=== PATIENT | male | born 1990 | race Caucasian/White ===

== ENCOUNTER 2020-03-24 07:31 | Outpatient (CLI) | payer OTHER ==
[2020-03-24 14:18] LABS: Hemoglobin 16.2 g/dL (14.0-18.0); Mean Corpuscular Volume 91.2 fL (78.0-98.0); Mean Platelet Volume 8.9 fL (7.4-10.4); Platelet Count 179 thou/uL (130-400); RBC Distribution Width 12.3 % (11.5-14.5); Red Blood Cell (RBC) Count 5.23 mill/uL (4.70-6.10); White Blood Cell (WBC) Count 4.3 thou/uL (4.8-10.8)
[2020-03-24 14:38] LABS: Bacteria/HPF None Seen HPF (None Seen); Bilirubin Negative (Negative); Blood, Urine Negative (Negative); Clarity Clear (Clear); Glucose, Urine (Dipstick) Normal (Negative); Ketone, Urine Negative (Negative); Leukocyte 25 Leu/uL (Negative); Nitrite Negative (Negative); Protein, Urine (Dipstick) Negative (Neg-Trace); RBC/HPF 0-3 HPF (0-3); Squamous Epithelial None Seen HPF (0-3); Urobilinogen Normal mg/dL (Less than 2); WBC/HPF 0-3 HPF (0-3); pH, Urine 6.5 (5.0-9.0)
[2020-03-24 15:10] LABS: Anion Gap 13 mmol/L (10-20); BUN (Urea Nitrogen) 22 mg/dL (8.9-20.6); Calc. Creatinine Clearance 0 mL/min (70-130); Calcium 9.7 mg/dL (7.8-10.44); Carbon Dioxide 23 mmol/L (22-29); Chloride 106 mmol/L (98-107); Estimated GFR-MDRD 62; Glucose 88 mg/dL (70-105); Potassium 4.1 mmol/L (3.5-5.1); Sodium 138 mmol/L (136-145); Uric Acid 6.8 mg/dL (3.5-7.2)
[2020-03-26 12:44] LABS: SARS-CoV-2 MS2 Positive; SARS-CoV-2 N Gene Negative; SARS-CoV-2 S Gene Negative; SARS-CoV-2 by NAA Not Detected (NotDetected); SARS-CoV-2 orf1ab Negative
== END 2020-03-24 07:32 | disposition home or self-care (01) ==
LOC: LABBT 07:31
PROVIDERS: ATTEND Urology
DX: Z01.812 Encounter for preprocedural laboratory examination (principal); N20.0 Calculus of kidney; Z20.828 Contact with and (suspected) exposure to other viral communicable diseases
CPT/HCPCS: 80048; 81001; 83970; 84550; 85027; 87086; 87635; U0003

== ENCOUNTER 2020-03-27 06:19 | Day surgery (SDC) | payer OTHER ==
[2020-03-26 11:34] VITALS: BMI 25.0
[2020-03-27] MEDS ORDERED: Levofloxacin 500 mg/D5W 100 ml Premix Bag ONE (06:34)
[2020-03-27] MEDS ORDERED: Iothalamate Meglumine 60% 50 ML VIAL FS ONE ×2 (06:55→07:06)
[2020-03-27] MEDS ORDERED: Midazolam HCl 2 mg/2 ml Vial ONE (07:14)
[2020-03-27] MEDS ORDERED: Ondansetron PF 4 MG/2 ML Vial ONE (07:15)
[2020-03-27] MEDS ORDERED: Famotidine/PF 20 mg/2ml Vial ONE (07:15)
[2020-03-27] MEDS ORDERED: Fentanyl 250 MCG/5 ML VIAL ONE (07:20)
[2020-03-27] MEDS ORDERED: Oxybutynin 5 MG TAB ONE (09:13)
[2020-03-27] MEDS ORDERED: Ketorolac Tromethamine 30 MG/ML VIAL ONE (09:13)
[2020-03-27] MEDS ORDERED: Fentanyl 100 MCG/2 ML VIAL ONE (09:20)
--- NOTE | 2020-03-27 09:22 | OP ---
DATE OF PROCEDURE: 03/27/2020 PREOPERATIVE DIAGNOSIS: Bilateral renal stones. POSTOPERATIVE DIAGNOSIS: Bilateral renal stones. PROCEDURES PERFORMED: Bilateral retrograde pyelogram, bilateral ureteroscopy with laser lithotripsy, basket extraction of stone, right 6 x 24 double-J ureteral stent, left 6 x 26 double-J ureteral stent, intraoperative interpretation of radiologic imaging. ANESTHESIA: General. COMPLICATIONS: None. ESTIMATED BLOOD LOSS: Minimal. SPECIMEN: Stone fragments. DESCRIPTION OF PROCEDURE: After informed consent, the patient was taken to the operating room, transferred to the table under his own power. Anesthesia was established. A time-out was performed, showing the correct patient, site, and procedure. Preoperative antibiotics were administered. He was prepped and draped in the lithotomy position. The rigid cystoscope was advanced through the urethra noting a normal course and caliber of the urethra into the bladder. The right ureteral orifice was cannulated with a Pollack catheter and a retrograde pyelogram was performed showing good filling of the entire ureter with no filling defects or hydroureter. Under daycare assistant imaging, he does have several stones and multiple calcifications throughout the kidney, mostly along the periphery. A Pollack catheter was then inserted into the left ureter and retrograde performed with similar findings. No evidence of stones in the ureter or hydroureter. A wire was then passed into the right ureter and then an access sheath was placed over this into the proximal ureter under fluoroscopic guidance. The flexible ureteroscope was passed through this into the right renal pelvis, which was systematically examined. There were 4 individual stones that were accessible in the renal pelvis. There were several other calcifications that I could correlate on daycare assistant imaging or fluoroscopy; however, was unable to identify these inside the kidney. The stones were treated with the 200 micron laser fiber and then the basket was used to retrieve all clinically significant stone fragments. He does still have a partial stone in the lower pole calyx that I was not able to access despite multiple attempts and different techniques. This stone is simply beyond the flexion of a flexible ureteroscope. The scope and access sheath were then slowly withdrawn, inspecting the entirety of the ureter noting no abnormalities. A wire was left in place and then a 6 x 24 double-J ureteral stent with strings was passed over the wire with a curl in the kidney and curl in the bladder. The same procedure was repeated on the left side. However, I was able to clear all the stones on the left side. A 6 x 26 double-J ureteral stent was placed on the left side also with strings. The strings to the stents were taped to the patient's penis with a Tegaderm. He was then awoken from anesthesia, transferred back to hospital bed, and taken to PACU in stable condition, where he will discharge home upon recovery. Job ID: [id number]
[2020-03-27] MEDS ORDERED: PROPOFOL 200 MG/20 ML VIAL ONE (11:58)
[2020-03-27] MEDS ORDERED: PHENYLEPHRINE-NS 100 MCG/ML 10 ML SYRINGE ONE (11:58)
[2020-03-27] MEDS ORDERED: Rocuronium Bromide 10 MG/ML (10ML VIAL) ONE (11:58)
--- NOTE | 2020-03-30 07:07 | RAD ---
Retrograde pyelogram 23 views: 03/27/2020 HISTORY: 30-year-old male with "calculus of kidney, " bilateral nephrolithiasis FINDINGS: A total of 23 fluoroscopic images submitted from cystoscopy suite. There are multiple bilateral small and moderate size renal calculi. Injection into right distal ureter demonstrates mild right right hydroureter, but no hydronephrosis. Injection into left distal ureter demonstrates minimal left hydroureter, and no significant left hydr onephrosis. Subsequent images demonstrate advancement of a guide wire, then a catheter or scope into right renal collecting system at mid or lower pole. There is good washout of contrast on the right. Next, there is advancement of a guidewire into right renal midpole or upper pole collecting system, f ollowed by deployment of a double pigtail right ureteral stent. Later images demonstrate advancement of guidewire and catheter and or scope into left renal collectin g system, followed by deployment of left-sided double pigtail ureteral stent. One of the images demonstrate what appears to be a stone retrieval device with upper portion in the r ight pelvic cavity. Review of the CT of 01/30/2020 demonstrates bilateral nephrocalcinosis in addition to bilateral nephro lithiasis. The bilateral hydroureter demonstrated on the CT was probably due to distended urinary bladder. IMPRESSION: 1.) Calculus of kidney: Bilateral nephrolithiasis. 2) bilateral nephrocalcinosis. The differential diagnosis for this includes medullary sponge kidney, renal tubular acidosis, and milk alkali syndrome. 3) deployment of bilateral ureteral stents. 4) no compelling evidence of obstructive uropathy.
== END 2020-03-27 11:30 | disposition home or self-care (01) ==
LOC: SDC 06:19
PROVIDERS: ATTEND Urology
PROC: 0TC48ZZ Extirpation of Matter from Left Kidney Pelvis, Via Natural or Artificial Opening Endoscopic (ICD-10-PCS; principal; 2020-03-27)
PROC: 0T788DZ Dilation of Bilateral Ureters with Intraluminal Device, Via Natural or Artificial Opening Endoscopic (ICD-10-PCS; principal; 2020-03-27)
PROC: 0TC38ZZ Extirpation of Matter from Right Kidney Pelvis, Via Natural or Artificial Opening Endoscopic (ICD-10-PCS; principal; 2020-03-27)
DX: N20.0 Calculus of kidney (principal); N13.4 Hydroureter; E78.5 Hyperlipidemia, unspecified; Z79.899 Other long term (current) drug therapy
CPT/HCPCS: 74420; 82365; 88300; J1885; J1956; J2250; J2405; J2704; J3010; S0028